=== PATIENT | male | born 1970 | race Caucasian/White ===

== ENCOUNTER 2025-03-04 17:46 | Emergency (ER) | payer OTHER ==
[~2025-03-04] VITALS: Ht 180.3 cm; Wt 114.0 kg
[2025-03-04 17:48] VITALS: O2SAT 99
[2025-03-04] MEDS: MORPHINE SULFATE 4 MG/ML INJ (FOR IV/IM USE) IV ONE ×2 (19:02→20:22)
[2025-03-04] MEDS ORDERED: HYDR-4001 MT (20:40)
[2025-03-04 22:15] VITALS: BP 159/88; PULSE 53; RESP 14; TEMP 36.7; O2SAT 97
== END 2025-03-04 22:25 | disposition home or self-care (01) ==
LOC: ER 17:46
DX: S82.852A Displaced trimalleolar fracture of left lower leg, initial encounter for closed fracture (principal); E11.9 Type 2 diabetes mellitus without complications; I10 Essential (primary) hypertension; W10.9XXA Fall (on) (from) unspecified stairs and steps, initial encounter; X58.XXXA Exposure to other specified factors, initial encounter; Y93.01 Activity, walking, marching and hiking; Y92.89 Other specified places as the place of occurrence of the external cause; Y99.8 Other external cause status
CPT/HCPCS: 73562; 73590; 73610; 73630; 29505; 96374; 96376; 99285; J2270; Z7610 ×2; A4606